=== PATIENT | male | born 1980 | race Caucasian/White ===

== ENCOUNTER 2024-04-11 00:12 | Emergency (ER) | payer BC ==
--- NOTE | 2024-04-11 00:30 | NUR ---
PT DECIDED NOT TO GET TRIAGED. HE DECIDED TO GO HOME, AMBULATING OUT WITH STEADY GAIT.
== END 2024-04-11 00:45 | disposition left against medical advice (07) ==
LOC: ER 00:35
DX: R23.8 Other skin changes (principal); Z53.21 Procedure and treatment not carried out due to patient leaving prior to being seen by health care provider